=== PATIENT | male | born 1945 | race Caucasian/White ===

== ENCOUNTER 2018-07-08 11:53 | Outpatient (CLI) | payer OTHER ==
[~2018-07-08 11:53] MED LIST: CATAFLAM50 MG PO
== END 2018-07-08 15:00 | disposition home or self-care (01) ==
LOC: RAD 11:53 → LAB 11:53
DX: E03.8 Other specified hypothyroidism (principal); N28.89 Other specified disorders of kidney and ureter; M54.5 Low back pain